=== PATIENT | male | born 1975 | race Caucasian/White ===

== ENCOUNTER → 2017-12-20 07:30 | Outpatient (CLI) | payer BC, SELFPAY ==
[2017-12-20 10:34] LABS: Hematocrit 50.1 % (40-54); Hemoglobin 17.9 g/dl (13.0-16.5); Mean Corp Hgb Conc 35.7 g/gl (32-36); Mean Corpuscular Hgb 30.5 pg (27.0-32.0); Mean Corpuscular Volume 85.3 fL (80-94); Mean Platelet Vol. 10.3 fl (6.2-12.0); Platelet Count 294 K/mm3 (150-450); RBC Distribution Width CV 13.4 % (11.6-14.6); RBC Distribution Width SD 41.6 fl (35.1-43.9); Red Blood Count 5.87 M/mm3 (4.6-6.2); White Blood Count 9.4 K/mm3 (4.4-11.0)
[2017-12-20 10:38] LABS: Scan Indicated on CBC? Y/N NO
[2017-12-20 12:03] LABS: ALB/GLOB Ratio 1.2 RATIO (0.9-2.4); AST(SGOT) 18 U/L (15-37); Alanine Aminotransfer ALT/SGPT 33 U/L (16-61); Albumin, Serum 4.1 g/dL (3.2-5.0); Alkaline Phosphatase 85 U/L (45-117); Anion Gap 7 (5-15); BUN 13 mg/dL (7-18); BUN/Creat Ratio 13.2 RATIO (10-20); Calcium,Total 8.6 mg/dL (8.5-10.1); Chloride 107 mmol/L (98-107); Creatinine, Serum 0.99 mg/dL (0.70-1.30); EST Glomerular Filtration Rate 89 mL/min (>60); Est Glom Filt Rate - Afr Amer 108 mL/min (>60); Estradiol < 11.0 pg/mL; Globulin 3.4 g/dL (2.2-4.2); Glucose 84 mg/dL (74-106); PSA,Total - Annual Screen 0.97 ng/mL (0.00-4.00); Potassium 3.9 mmol/L (3.5-5.1); Protein, Total 7.5 g/dL (6.4-8.2); Sodium Level 140 mmol/L (136-145)
[2017-12-24 20:06] LABS: DHEA Sulfate 184.4 ug/dL (102.6-416.3); Testosterone, % Free 4.47 % (1.50-4.20); Testosterone, Free 18.64 ng/dL (5.00-21.00)
[2017-12-25 09:23] LABS: Sex Hormone-binding Globulin 32.5 nmol/L (16.5-55.9); Testosterone, Total 417 ng/dL (264-916)
[2018-04-13 00:06] LABS: PSA,Total- Diagnostic 0.97 ng/mL (0.0-4.0)
== END ==
PROVIDERS: Family Provider Family Medicine; PCP Family Medicine
DX: E29.1 Testicular hypofunction (principal)
CPT/HCPCS: 36415; 80053; 82627; 82670; 84153; 84270; 84402; 84403; 85027; 82626; G0103

== ENCOUNTER → 2018-01-31 16:54 | Outpatient (CLI) | payer BC, SELFPAY | PROVIDERS: Family Provider Family Medicine; PCP Family Medicine; Visit Provider Family Medicine | DX: R07.9 Chest pain, unspecified (principal) ==

== ENCOUNTER 2018-02-01 09:50 | Emergency (ER) | payer BC, SELFPAY ==
[2018-02-01 09:50] VITALS: BP 158/106; PULSE 80; RESP 15; TEMP 35.9; O2SAT 97; BMI 27.6
--- NOTE | 2018-02-01 10:05 | EKG12_ITS ---
Test Reason : PALPS Blood Pressure : / mmHG Vent. Rate : 072 BPM Atrial Rate : 072 BPM P-R Int : 140 ms QRS Dur : 096 ms QT Int : 346 ms P-R-T Axes : 054 071 008 degrees QTc Int : 378 ms Normal sinus rhythm Nonspecific T wave abnormality Confirmed by MERISSA KING, CHLOÉ ([id number]), purchasing expeditor DARRICK DUFFY ([id number]) on 02/03/2018 2:37:34 PM Referred By: Balbina Cooper Confirmed By:CHLOÉ CRAVEN MD
--- NOTE | 2018-02-01 10:15 | ED.DCSUM_ITS ---
- ER Visit Summary Date of Service: 02/01/18 Chief Complaint: Palpitations History of Present Illness: The patient is a 42 M presenting with 2-3 days of feeling wiped out and having intermittent palpitations. He drove home from [facility] 3 days ago. He did stop for food and restroom breaks. He denies lower extremity pain or swelling. Denies history of DVT or PE. Otherwise denies immobilization. No recent surgeries. He has not had actual chest pain or shortness of breath but has felt a funny feeling in the left side of his chest with a fluttering sensation and palpitations. He saw his doctor yesterday and had an EKG performed subsequently referred to the emergency department with concern for pulmonary embolism. He has no personal history of cardiac issues. He does suffer from lupus and is on Ultram but no other medications. He started smoking 4 months ago. His only family history of cardiac disease is a myocardial infarction and subsequent two-vessel CABG performed this past August at age 65. Physical Examination: Within normal limits. Not in distress. Neck is supple. Heart tones regular without murmur. Lungs are clear bilaterally. Abdomen is soft and nontender. No tenderness along the lower extremity venous system, edema, or palpable cords. Strong pulses in all extremities. No chest wall tenderness. Test Results: CBC and BMP are both normal. Troponin is negative. EKG unremarkable. Chest x-ray clear. Emergency Department Course and Treatment: None and is negative after several days of symptoms arguing against acute coronary syndrome. No ischemic changes on EKG. No associated shortness of breath, diaphoresis, or other anginal type symptoms. He has no clinical evidence of DVT and no risk factors other than his recent drive. His pulse ox is 98% and his heart rate is 60 making pulmonary embolus and extremely unlikely. His d-dimer is negative as well so I do not feel he needs a CT angiogram. Chest x-ray is clear and other labs are unremarkable. Exact cause of his palpitations is not clear at this point but his heart rate has been in the 60s and normal sinus on the monitor throughout his entire stay. He looks well and wants to go home. I discussed the case with his primary care physician, Dr. Cooper, to arrange close follow-up. He was discharged in stable condition. Treatment Plan: Follow-up with Dr. Cooper Disposition: Home in stable condition Impression: Initial encounter palpitations of uncertain etiology This note was generated with [employer] dictation software. It may contain incorrect words, spelling, and punctuation that were not noted in review of the chart prior to signing ED Disposition - Plan for ED Patient: Chief Complaint: Palpitations Instructions: ED Palpitations Referrals: Gustavo Grace MD [Primary Care Provider] -
[2018-02-01 10:26] LABS: Absolute Lymphocyte Count 2.06 X10^3/ul (0.83-4.51); Absolute Neutrophil Count 5.5 X10^3/uL (2.0-7.7); Basophil# 0.03 X10^3/uL; Basophil% 0.4 % (0-1); Eosinophil# 0.18 X10^3/uL; Eosinophils% 2.2 % (0-5); Hematocrit 49.1 % (40-54); Hemoglobin 16.9 g/dl (13.0-16.5); Lymphocyte # 2.06 X10^3/ul (4.0); Lymphocyte % 24.7 % (19-41); Mean Corp Hgb Conc 34.4 g/gl (32-36); Mean Corpuscular Hgb 30.3 pg (27.0-32.0); Mean Platelet Vol. 9.4 fl (6.2-12.0); Monocyte# 0.59 X10^3/uL; Monocyte% 7.1 % (0-10); Neutrophil # 5.46 X10^3/uL (2.7-7.7); Neutrophil % 65.4 % (47-70); Platelet Count 311 K/mm3 (150-450); RBC Distribution Width CV 14.3 % (11.6-14.6); Red Blood Count 5.58 M/mm3 (4.6-6.2); White Blood Count 8.3 K/mm3 (4.4-11.0)
[2018-02-01] MEDS: 0.9% Normal Saline 1,000 ML 1000 ML IV (10:30)
[2018-02-01] MEDS: Aspirin 81 MG TAB.CHEW 324 MG PO (10:30)
[2018-02-01 10:31] VITALS: O2SAT 95
[2018-02-01 10:31] LABS: POSITIVE COUNT NO; POSITIVE DIFFERENTIAL NO; POSITIVE MORPHOLOGY NO
[2018-02-01 10:32] VITALS: BP 139/85; PULSE 70; RESP 18; O2SAT 95
--- NOTE | 2018-02-01 10:45 | RAD_ITS ---
STUDY: X-RAY CHEST REASON FOR EXAM: Male, 42 years old. PALPITATIONS TECHNIQUE: Frontal and lateral views of the chest. COMPARISON: None. FINDINGS: The lungs are clear and expanded. There is no demonstrated pleural abnormality. Normal size heart. Normal mediastinum and zak. Normal visualized pulmonary arteries. Normal visualized aortic arch and descending thoracic aorta. Normal visualized thoracic spine. Normal visualized ribs, clavicles, and shoulders. There is no demonstrated abnormality of the visualized soft tissue structures of the upper abdomen. RAD/Chest PA and Lateral IMPRESSION: Normal x-ray examination of the chest. Electronically Signed: Wayne Palomino MD at 11:30 EDT Tel , Service support ,
[2018-02-01] MEDS: Famotidine 20 MG Tablet 40 MG PO (10:46)
[2018-02-01 10:48] LABS: Anion Gap 5 (5-15); BUN 9 mg/dL (7-18); BUN/Creat Ratio 7.6 RATIO (10-20); Calcium,Total 9.3 mg/dL (8.5-10.1); Chloride 106 mmol/L (98-107); Creatinine, Serum 1.18 mg/dL (0.70-1.30); EST Glomerular Filtration Rate 72 mL/min (>60); Est Glom Filt Rate - Afr Amer 88 mL/min (>60); Glucose 125 mg/dL (74-106); Potassium 3.8 mmol/L (3.5-5.1); Sodium Level 140 mmol/L (136-145)
[2018-02-01 11:03] LABS: D-Dimer Quantitative (DVT/PE) 0.43 FEU/ug/m (0.27-0.49)
[2018-02-01 13:27] VITALS: BP 139/84; PULSE 91; RESP 20; O2SAT 97
--- NOTE | 2018-02-01 13:28 | ED.RN ---
THIS NURSE REVIEWED D/C INSTRUCTIONS WITH PT. PT VERBALIZED UNDERSTANDING OF INSTRUCTIONS. IV D/C. IV CATHETER INTACT. PT TOLERATED WELL. PT DENIES FURTHER NEEDS OR QUESTIONS AT THIS TIME. PT AMBULATES FROM ROOM ON OWN WITHOUT ASSISTANCE FROM STAFF
== END 2018-02-01 13:29 | disposition home or self-care (01) ==
LOC: ED 10:22
PROVIDERS: Emergency Provider Emergency Medicine; Family Provider Family Medicine; PCP Family Medicine
DX: R00.2 Palpitations (principal); R07.89 Other chest pain; R11.0 Nausea; Z79.899 Other long term (current) drug therapy; Z72.0 Tobacco use
CPT/HCPCS: 71046; 80048; 84484; 85025; 85379; 93005; 96360; 96361; 99285; J7030

== ENCOUNTER → 2018-04-06 11:46 | Outpatient (CLI) | payer SELFPAY ==
[2018-04-06 14:09] LABS: Hematocrit 47.8 % (40-54); Hemoglobin 16.1 g/dl (13.0-16.5); Mean Corp Hgb Conc 33.7 g/gl (32-36); Mean Corpuscular Hgb 30.4 pg (27.0-32.0); Mean Corpuscular Volume 90.2 fL (80-94); Mean Platelet Vol. 10.2 fl (6.2-12.0); Platelet Count 332 K/mm3 (150-450); RBC Distribution Width CV 13.5 % (11.6-14.6); RBC Distribution Width SD 44.2 fl (35.1-43.9); White Blood Count 9.6 K/mm3 (4.4-11.0)
[2018-04-06 14:11] LABS: Scan Indicated on CBC? Y/N NO
[2018-04-06 14:34] LABS: ALB/GLOB Ratio 1.1 RATIO (0.9-2.4); AST(SGOT) 20 U/L (15-37); Alanine Aminotransfer ALT/SGPT 29 U/L (16-61); Alkaline Phosphatase 74 U/L (45-117); Anion Gap 7 (5-15); BUN 10 mg/dL (7-18); BUN/Creat Ratio 7.9 RATIO (10-20); Calcium,Total 9.7 mg/dL (8.5-10.1); Chloride 104 mmol/L (98-107); Creatinine, Serum 1.27 mg/dL (0.70-1.30); EST Glomerular Filtration Rate 66 mL/min (>60); Est Glom Filt Rate - Afr Amer 80 mL/min (>60); Estradiol 32.9 pg/mL; Globulin 3.7 g/dL (2.2-4.2); Glucose 62 mg/dL (74-106); Potassium 3.9 mmol/L (3.5-5.1); Protein, Total 7.7 g/dL (6.4-8.2); Sodium Level 141 mmol/L (136-145)
[2018-04-10 16:09] LABS: Testosterone, % Free 4.58 % (1.50-4.20); Testosterone, Free 32.15 ng/dL (5.00-21.00)
[2018-04-11 10:22] LABS: Insulin Like Growth Factor 169 ng/mL (75-216); Testosterone, Total 702 ng/dL (264-916)
[2018-04-12 14:08] LABS: PSA,Total - Annual Screen 0.99 ng/mL (0.00-4.00)
== END ==
PROVIDERS: Family Provider Family Medicine; PCP Family Medicine
DX: E29.1 Testicular hypofunction (principal)
CPT/HCPCS: 36415; 80053; 82627; 82670; 84153; 84305; 84402; 84403; 85027; 82626; G0103

== ENCOUNTER → 2018-12-01 | Outpatient (CLI) | payer OTHER, SELFPAY ==
[2018-12-01 16:17] LABS: Hematocrit 45.8 % (40-54); Hemoglobin 15.6 g/dl (13.0-16.5); Mean Corp Hgb Conc 34.1 g/gl (32-36); Mean Corpuscular Hgb 29.7 pg (27.0-32.0); Mean Corpuscular Volume 87.2 fL (80-94); Mean Platelet Vol. 10.3 fl (6.2-12.0); Platelet Count 320 K/mm3 (150-450); RBC Distribution Width CV 13.2 % (11.6-14.6); RBC Distribution Width SD 42.3 fl (35.1-43.9); Red Blood Count 5.25 M/mm3 (4.6-6.2); White Blood Count 8.1 K/mm3 (4.4-11.0)
[2018-12-01 16:20] LABS: Scan Indicated on CBC? Y/N NO
[2018-12-01 16:59] LABS: ALB/GLOB Ratio 1.2 RATIO (0.9-2.4); AST(SGOT) 24 U/L (15-37); Alanine Aminotransfer ALT/SGPT 37 U/L (16-61); Alkaline Phosphatase 100 U/L (45-117); Anion Gap 6 (5-15); BUN 10 mg/dL (7-18); BUN/Creat Ratio 9.8 RATIO (10-20); Calcium,Total 8.7 mg/dL (8.5-10.1); Chloride 106 mmol/L (98-107); Creatinine, Serum 1.02 mg/dL (0.70-1.30); EST Glomerular Filtration Rate 85 mL/min (>60); Est Glom Filt Rate - Afr Amer 103 mL/min (>60); Estradiol 15.4 pg/mL; Globulin 3.3 g/dL (2.2-4.2); Glucose 86 mg/dL (74-106); PSA,Total- Diagnostic 0.74 ng/mL (0.0-4.0); Potassium 3.8 mmol/L (3.5-5.1); Protein, Total 7.3 g/dL (6.4-8.2); Sodium Level 140 mmol/L (136-145)
[2018-12-06 09:17] LABS: Testosterone, % Free 3.01 % (1.50-4.20); Testosterone, Free 9.42 ng/dL (5.00-21.00)
[2018-12-06 11:41] LABS: Insulin Like Growth Factor 125 ng/mL (75-216); Testosterone, Total 313 ng/dL (264-916)
== END | disposition home or self-care (01) ==
LOC: MTLAB 13:57
PROVIDERS: Family Provider Family Medicine; PCP Family Medicine
DX: E29.1 Testicular hypofunction (principal)
CPT/HCPCS: 36415; 80053; 82627; 82670; 84153; 84305; 84402; 84403; 85027; 82626

== ENCOUNTER 2019-09-09 14:35 | Emergency (ER) | payer OTHER, SELFPAY ==
[2019-09-09 14:36] VITALS: BP 160/88; PULSE 86; RESP 16; TEMP 36.4; O2SAT 100; BMI 27.3
--- NOTE | 2019-09-09 15:23 | RAD_ITS ---
STUDY: X-RAY - RIGHT KNEE REASON FOR EXAM: Male, 44 years old. PAIN AND SWELLING IN HIS RIGHT KNEE. RECENT SURGERY July FOR TORN MENISCUS AND ONE TO SAME KNEE A FEW YRS AGO WELL. TECHNIQUE: 4 view(s) of the knee. COMPARISON: None. FINDINGS: Normal visualized distal femur. Normal visualized proximal tibia and fibula. Normal proximal tibiofibular articulation. Normal medial femorotibial compartment. Normal lateral femorotibial compartment. Normal patellofemoral articulation. There is no demonstrated joint effusion. The soft tissue structures are unremarkable. RAD/Knee 4 or More Views IMPRESSION: No fracture or malalignment. Electronically Signed: Tigre Mendoza MD (Brooks) at 15:57 EST , Service support ,
--- NOTE | 2019-09-09 15:46 | ED.DCSUM_ITS ---
- ER Visit Summary Date of Service: 09/09/19 Chief Complaint: Right knee pain History of Present Illness: The patient is a 44 M who reports he had arthroscopy on his right knee by Dr. Rahul Tolbert from [facility] on August 09. He reports that he has had pain ever since that time. He is not going to physical therapy. He describes the pain as sharp and aching. Is 10 on 10 at worst and 7 out of 10 currently. Is worsened by walking. Is relieved minimally by Advil. He denies any numbness or weakness. He denies any calf pain or swelling. He denies any chest pain or shortness of breath. Physical Examination: Vitals: Stable. Afebrile. General: Well-nourished and well-developed. Head: Normocephalic atraumatic. Neck: Supple, no lymphadenopathy. No JVD. Nontender. Cardiovascular: Regular rate and rhythm. No murmurs. Respiratory: No respiratory distress. Clear to auscultation bilaterally. Abdominal: Soft, nontender, nondistended, normal bowel sounds. No guarding, rebound, or peritoneal signs. Back: Nontender. Extremities: Moderate joint effusion of the right knee. He is able to bend to approximately 120 degrees with mild pain. He is not able to fully extend his knee. He has moderate diffuse tenderness palpation over his entire knee. However, there is no erythema or warmth to suggest a septic joint. He has no calf tenderness. He has a 2+ dorsalis pedis pulse and is neurovascularly intact. Skin: Normal color, no rash. Neurologic: Alert and oriented ?3. Cranial nerves II through XII are intact. Normal strength and sensation. Psych: Normal affect. Test Results: Clinical Impression(s) from Imaging Studies Knee X-Ray 09/09/19 15:23 IMPRESSION: No fracture or malalignment. Electronically Signed: Tigre Mendoza MD (Brooks) at 15:57 EST , Service support , Emergency Department Course and Treatment: Patient drove here and had already taken ibuprofen prior to arrival. Treatment Plan: Patient will be discharged with prescription for 12 Percocet. He is instructed to begin using his crutches again and be nonweightbearing. Ice is much as possible. Follow-up with his orthopedic surgeon as soon as possible. Return to the emergency department for any worsening symptoms. Disposition: To home in improved and stable condition. Impression: 1. Right knee pain. 2. Status post right knee arthroscopy August 09, 2019. This note was generated with [employer] software. It may contain incorrect words, spelling, and punctuation that were not noted in review of the chart prior to signing ED Disposition - Plan for ED Patient: Disposition: Home or Assisted Living Instructions: KNEE PAIN, Uncertain Cause Prescriptions: Oxycodone HCl/Acetaminophen [Percocet 5/325] 1 tab PO Q6H PRN PRN 3 Days #12 tab PRN Reason: Pain Prescription Printed Referrals: Rahul Scott [NON-STAFF] - As soon as possible
[2019-09-09 16:34] VITALS: RESP 15
== END 2019-09-09 16:35 | disposition home or self-care (01) ==
LOC: ED 15:15
PROVIDERS: Emergency Provider Emergency Medicine; PCP Family Medicine
DX: M25.561 Pain in right knee (principal); Z98.890 Other specified postprocedural states; M32.9 Systemic lupus erythematosus, unspecified; F17.200 Nicotine dependence, unspecified, uncomplicated
CPT/HCPCS: 73564; 99282

== ENCOUNTER → 2019-10-22 13:50 | Outpatient (CLI) | payer OTHER, SELFPAY ==
[2019-10-22 16:09] LABS: ALB/GLOB Ratio 1.1 RATIO (0.9-2.4); AST(SGOT) 19 U/L (15-37); Alanine Aminotransfer ALT/SGPT 36 U/L (16-61); Albumin, Serum 3.9 g/dL (3.2-5.0); Alkaline Phosphatase 92 U/L (45-117); Anion Gap 4 (5-15); BUN 14 mg/dL (7-18); BUN/Creat Ratio 14.5 RATIO (10-20); Calcium,Total 9.1 mg/dL (8.5-10.1); Chloride 108 mmol/L (98-107); Creatinine, Serum 0.96 mg/dL (0.70-1.30); EST Glomerular Filtration Rate 91 mL/min (>60); Est Glom Filt Rate - Afr Amer 110 mL/min (>60); Estradiol 24.6 pg/mL; Globulin 3.4 g/dL (2.2-4.2); Glucose 131 mg/dL (74-106); PSA,Total - Annual Screen 0.66 ng/mL (0.00-4.00); Potassium 3.6 mmol/L (3.5-5.1); Protein, Total 7.3 g/dL (6.4-8.2); Sodium Level 140 mmol/L (136-145)
[2019-10-22 16:28] LABS: Hematocrit 45.1 % (40-54); Hemoglobin 15.4 g/dL (13.0-16.5); Mean Corp Hgb Conc 34.1 g/dL (32-36); Mean Corpuscular Hgb 30.6 pg (27.0-32.0); Mean Corpuscular Volume 89.5 fL (80-94); Mean Platelet Vol. 9.6 fl (6.2-12.0); Platelet Count 364 K/mm3 (150-450); RBC Distribution Width SD 42.6 fl (35.1-43.9); Red Blood Count 5.04 M/mm3 (4.6-6.2); White Blood Count 11.3 K/mm3 (4.4-11.0)
[2019-10-26 12:07] LABS: DHEA Sulfate 110.7 ug/dL (102.6-416.3); Insulin Like Growth Factor 120 ng/mL (75-216); Testosterone, % Free 2.51 % (1.50-4.20); Testosterone, Free 7.91 ng/dL (5.00-21.00)
[2019-10-26 23:53] LABS: Sex Hormone-binding Globulin 31.8 nmol/L (16.5-55.9); Testosterone, Total 315 ng/dL (264-916)
== END ==
PROVIDERS: PCP Family Medicine
DX: E29.1 Testicular hypofunction (principal)
CPT/HCPCS: 36415; 80053; 82627; 82670; 84153; 84270; 84305; 84402; 84403; 85027; 82626; G0103

== ENCOUNTER 2019-12-12 11:00 | Outpatient (RCR) | payer OTHER, SELFPAY ==
--- NOTE | 2019-10-05 13:01 | HP.PTEVAL_ITS ---
Patient's Visit Information RHONDA CARDENAS Gerry is a 44 year old M referred to Physical Therapy by HUBERT AGUILA with a diagnosis of Knee. Date of Evaluation: 10/05/19 Physical Therapist: Lacey Solares DPT - Visit Plan Frequency: 2x /Week Duration: 4 Weeks Plan: Focus on LE ROM and strength - Subjective Findings: August 09- Dr. Aguila- clean out of the right knee. 3 previous surgeries 1990 growth plates, MCL 1992, 1996 scoped and fixed a small tear in ACL without repair, and then this year. Performed surgery due to dislocations- the last time he in June and he had to have a congressional assistant put it back in place. Was weight bearing- fell down a few days after surgery and its been swollen and miserable since. Had a cortisone injection 2 weeks ago. Went to ER Sep 09 and they did an x-ray which was negative- went back to surgeon Sep 25 and the knee cap was again in the quad and he put it back in place. On crutches prior to seeing him. Currently knee cap is correct location and has not moved since then. Has deep bone bruises due to the dislocations. He has had an MRI again since surgery and no tears Worst in the last 48 hours 03/31 Agg: everything Eases: elevation, ice and heat. Best: 11/29. Patient reports that he has pain all over the knee- no radiating pain to the hip or ankle. Dully and achy and sharp shooting depending on what he is doing. He has poor ROM. Sleep: disturbed- normally a stomach sleeper but has been on his back. 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 Carries a 45lb backpack when he travels. Back to work. Should be able to do PT in clinic Tuesday and Fridays. PMHx: Lupus (skin and joint) Meds: Mobic, Tramadol, Percoset, Probiotic - Objective Posture: FH, RS- can correct but does not maintain. Gait: antalgic- decreased stance on right LE- poor heel/toe pattern- does not obtain full extension. SLS: unable. HR/TR: able. Palpation: significant tenderness around patella and medial and lateral joint line. ROM: 10-80 degrees. Strength: quad set is visible but poor- SLR: significant lag. Flex: HS: severe, gastroc: severe - Goals Goal 1:: Patient will be I with HEP and progression Goal Time Frame: 4-6 Weeks Goal 2:: Patient will ambulate >300 feet with a normalized gait pattern Goal Time Frame: 4-6 Weeks Goal 3:: Patient will asc/desc 8 stairs with recip pattern no HR Goal Time Frame: 4-6 Weeks - Rehabilitation Potential Physical Therapy Diagnosis: Patient presents with hypomobility- he has decreased strength, ROM, flex and muscular endurance leading to abnormal gait and decreased ability to perform ADL's Rehabilitation Potential: Fair - Anticipated Interventions Patient/Client Instruction: Educate patient on: Benefits of Fitness Program Therapeutic Exercise to Include: Strength training, Endurance training, Balance training, Agility training, Body mechanics, Postural training, Flexibilty training, Gait and locomotor training, Neuromotor development, Passive ROM, Active ROM, Scapular Strength/Stabilization For the Purpose of:: To improve muscle performance and motor function TENS: Yes Cryotherapy (ice pack, ice massage): Yes Thermo therapy (hot pack): Yes Thank you for the opportunity to evaluate your patient. For Medicare and Medicare HMO plans, please review the plan of care and approve it. It will need to be FAXED BACK to us at [phone] for Medicare purposes. For Medicare only, by signing this I certify the plan of care. Please let me know if there are questions or concerns regarding this plan of care. Physician Signature: Date:
--- NOTE | 2020-03-28 11:51 | HP.PT.NRP ---
RHONDA CARDENAS Sr. was seen in my office for initial evaluation on 10/05/19. The following Plan of Care was established for this patient: Initial Frequency: 2x /Week Initial Duration: 4 Weeks Patient/Client Instruction: Educate patient on: Benefits of Fitness Program Therapeutic Exercise to Include: Strength training, Endurance training, Balance training, Agility training, Body mechanics, Postural training, Flexibilty training, Gait and locomotor training, Neuromotor development, Passive ROM, Active ROM, Scapular Strength/Stabilization For the Purpose of:: To improve muscle performance and motor function TENS: Yes Cryotherapy (ice pack, ice massage): Yes Thermo therapy (hot pack): Yes This patient was last seen in our office . Pertinent comments regarding their Physical therapy will appear below: Pt was treated for 11 PT visits for knee pain through the date of 12/12/19. Pt has not returned through todays date and is discontinued at this time. At this point I will be discontinuing this patient from physical therapy. I would be happy to see this patient again in the future if found appropriate by the physician. Thank you! Jeremiah Lutz, PT, ATC
== END 2019-12-12 19:00 | disposition home or self-care (01) ==
LOC: PT 11:00
PROVIDERS: PCP Family Medicine
DX: M17.11 Unilateral primary osteoarthritis, right knee (principal); M94.261 Chondromalacia, right knee
CPT/HCPCS: 97014; 97016; 97110; 97162; G0283

== ENCOUNTER → 2020-05-05 13:51 | Outpatient (CLI) | payer OTHER, SELFPAY ==
[2020-05-05 15:24] LABS: Hemoglobin 15.4 g/dL (13.0-16.5); Mean Corp Hgb Conc 34.2 g/dL (32-36); Mean Corpuscular Hgb 30.1 pg (27.0-32.0); Mean Corpuscular Volume 87.9 fL (80-94); Mean Platelet Vol. 9.5 fl (6.2-12.0); Platelet Count 344 K/mm3 (150-450); RBC Distribution Width CV 13.6 % (11.6-14.6); Red Blood Count 5.12 M/mm3 (4.6-6.2); White Blood Count 9.2 K/mm3 (4.4-11.0)
[2020-05-05 16:15] LABS: ALB/GLOB Ratio 1.2 RATIO (0.9-2.4); AST(SGOT) 23 U/L (15-37); Alanine Aminotransfer ALT/SGPT 42 U/L (16-61); Albumin, Serum 3.8 g/dL (3.2-5.0); Alkaline Phosphatase 109 U/L (45-117); Anion Gap 5 (5-15); BUN 14 mg/dL (7-18); BUN/Creat Ratio 11.6 RATIO (10-20); Chloride 108 mmol/L (98-107); Creatinine, Serum 1.21 mg/dL (0.70-1.30); EST Glomerular Filtration Rate 70 mL/min (>60); Est Glom Filt Rate - Afr Amer 84 mL/min (>60); Estradiol 18.8 pg/mL; Globulin 3.3 g/dL (2.2-4.2); Glucose 96 mg/dL (74-106); PSA,Total- Diagnostic 0.77 ng/mL (0.0-4.0); Potassium 3.6 mmol/L (3.5-5.1); Protein, Total 7.1 g/dL (6.4-8.2); Sodium Level 143 mmol/L (136-145)
[2020-05-11 09:11] LABS: Insulin Like Growth Factor 110 ng/mL (84-270); Testosterone, % Free 2.28 % (1.50-4.20); Testosterone, Free 6.93 ng/dL (5.00-21.00)
[2020-05-11 14:44] LABS: Sex Hormone-binding Globulin 28.8 nmol/L (16.5-55.9); Testosterone, Total 304 ng/dL (264-916)
== END ==
PROVIDERS: PCP Family Medicine
DX: E29.1 Testicular hypofunction (principal)
CPT/HCPCS: 36415; 80053; 82627; 82670; 84153; 84270; 84305; 84402; 84403; 85027; 82626

== ENCOUNTER → 2020-09-10 15:30 | Outpatient (CLI) | payer OTHER, SELFPAY ==
[2020-09-10 16:35] LABS: Amphetamine Urine VISTA NEGATIVE (<1000 ng/mL); Barbiturate Urine VISTA NEGATIVE (< 200 ng/mL); Benzodiazepine Urine VISTA NEGATIVE (< 200 ng/mL); Cocaine Urine VISTA NEGATIVE (< 300 ng/mL); Ecstacy Urine VISTA NEGATIVE (< 500 ng/mL); Methadone Urine VISTA NEGATIVE (< 300 ng/mL); PCP Urine VISTA NEGATIVE (< 25 ng/mL); THC Urine VISTA NEGATIVE (< 50 ng/mL); Vista UDS pH Range 6
== END ==
PROVIDERS: PCP Family Medicine; Visit Provider Anesthesiology Pain Medicine
DX: F11.20 Opioid dependence, uncomplicated (principal)
CPT/HCPCS: 80307

== ENCOUNTER → 2020-10-07 16:33 | Outpatient (CLI) | payer OTHER, SELFPAY ==
[2020-10-07 17:29] LABS: Hematocrit 52.3 % (40-54); Hemoglobin 17.7 g/dL (13.0-16.5); Mean Corp Hgb Conc 33.8 g/dL (32-36); Mean Corpuscular Hgb 29.8 pg (27.0-32.0); Mean Platelet Vol. 9.9 fl (6.2-12.0); Platelet Count 353 K/mm3 (150-450); RBC Distribution Width SD 42.4 fl (35.1-43.9); Red Blood Count 5.94 M/mm3 (4.6-6.2); White Blood Count 9.9 K/mm3 (4.4-11.0)
[2020-10-07 17:43] LABS: ALB/GLOB Ratio 1.2 RATIO (0.9-2.4); AST(SGOT) 23 U/L (15-37); Alanine Aminotransfer ALT/SGPT 45 U/L (16-61); Albumin, Serum 4.1 g/dL (3.2-5.0); Alkaline Phosphatase 101 U/L (45-117); Anion Gap 6 (5-15); BUN 14 mg/dL (7-18); BUN/Creat Ratio 10.4 RATIO (10-20); Calcium,Total 9.2 mg/dL (8.5-10.1); Chloride 104 mmol/L (98-107); Creatinine, Serum 1.34 mg/dL (0.70-1.30); EST Glomerular Filtration Rate 62 mL/min (>60); Est Glom Filt Rate - Afr Amer 75 mL/min (>60); Estradiol 12.8 pg/mL; Globulin 3.5 g/dL (2.2-4.2); Glucose 105 mg/dL (74-106); Potassium 3.4 mmol/L (3.5-5.1); Protein, Total 7.6 g/dL (6.4-8.2); Sodium Level 140 mmol/L (136-145)
[2020-10-11 12:07] LABS: Insulin Like Growth Factor 100 ng/mL (84-270); Testosterone, % Free 2.32 % (1.50-4.20); Testosterone, Free 6.43 ng/dL (5.00-21.00)
[2020-10-11 12:49] LABS: Sex Hormone-binding Globulin 30.8 nmol/L (16.5-55.9); Testosterone, Total 277 ng/dL (264-916)
== END ==
PROVIDERS: PCP Family Medicine
DX: E29.1 Testicular hypofunction (principal)
CPT/HCPCS: 36415; 80053; 82627; 82670; 84270; 84305; 84402; 84403; 85027; 82626

== ENCOUNTER 2022-07-26 14:19 | Outpatient (CLI) | payer OTHER, SELFPAY ==
[2022-07-26 23:06] LABS: Amphetamine Urine VISTA NEGATIVE (<1000 ng/mL); Barbiturate Urine VISTA NEGATIVE (< 200 ng/mL); Benzodiazepine Urine VISTA NEGATIVE (< 200 ng/mL); Cocaine Urine VISTA NEGATIVE (< 300 ng/mL); Ecstacy Urine VISTA NEGATIVE (< 500 ng/mL); Methadone Urine VISTA NEGATIVE (< 300 ng/mL); PCP Urine VISTA NEGATIVE (< 25 ng/mL); THC Urine VISTA NEGATIVE (< 50 ng/mL); Vista UDS pH Range 7
== END 2022-07-26 23:59 | disposition home or self-care (01) ==
LOC: LAB 14:21
PROVIDERS: PCP Family Medicine; Referring Provider Anesthesiology Pain Medicine; Visit Provider Anesthesiology Pain Medicine
DX: F11.20 Opioid dependence, uncomplicated (principal)
CPT/HCPCS: 80307

== ENCOUNTER → 2023-10-03 | Outpatient (CLI) | payer OTHER, SELFPAY ==
[2023-10-03 12:40] LABS: Absolute Neutrophil Count 4.8 X10^3/uL (2.0-7.7); Basophil# 0.07 X10^3/uL; Basophil% 0.8 % (0-1); Eosinophils% 1.1 % (0-5); Hematocrit 52.7 % (40-54); Hemoglobin 17.5 g/dL (13.0-16.5); Lymphocyte % 35.2 % (19-41); Mean Corp Hgb Conc 33.2 g/dL (32-36); Mean Corpuscular Hgb 28.9 pg (27.0-32.0); Mean Platelet Vol. 9.8 fl (6.2-12.0); Monocyte# 0.88 X10^3/uL; Monocyte% 9.7 % (0-10); NRBC Flagged by Analyzer 0 % (0-5); Neutrophil # 4.81 X10^3/uL (2.7-7.7); Neutrophil % 52.9 % (47-70); Platelet Count 354 K/mm3 (150-450); RBC Distribution Width CV 14.5 % (11.6-14.6); RBC Distribution Width SD 45.8 fl (35.1-43.9); Red Blood Count 6.06 M/mm3 (4.6-6.2); White Blood Count 9.1 K/mm3 (4.4-11.0)
[2023-10-03 12:59] LABS: Basophil 0.07 % (0-1); Blast 0.07 % (0-0); Eosinophil 0.07 % (0-5); Erythrocyte Sedimentation Rate 5 mm/hr (0-20); Lymphocyte 0.07 % (19-41); Metamyelocyte 0.07 % (0-1); Monocyte 0.07 % (0-10); Myelocyte 0.07 % (0-0); Neutrophil-Band 0.07 % (0-5); Neutrophil-Segmented 0.07 % (47-70); Promyelocyte 0.07 % (0-0); Total Cells Counted 0.07 (MANUAL DIFF)
[2023-10-03 13:42] LABS: Anion Gap 9 (5-15); BUN 12 mg/dL (7-18); BUN/Creat Ratio 10.3 RATIO (10-20); CRP < 2.90 mg/L (0.0-3.0); Calcium,Total 9.4 mg/dL (8.5-10.1); Chloride 107 mmol/L (98-107); Cholesterol 151 mg/dL (200); Creatinine, Serum 1.17 mg/dL (0.70-1.30); EST Glomerular Filtration Rate 71 mL/min (>60); Est Glom Filt Rate - Afr Amer 86 mL/min (>60); Glucose 67 mg/dL (74-106); High Density Lipoprotein 39 mg/dL; Rheumatoid Factor < 10.0 IU/mL (<15); Sodium Level 140 mmol/L (136-145); Triglycerides 176 mg/dL; Very Low Density Lipoprotein 35 mg/dL (5-40)
[2023-10-04 13:09] LABS: ANTINUCLEAR ANTIBODIES DIRECT Negative (Negative); Anti-dsDNA Ab <1 IU/mL (0-9)
== END | disposition home or self-care (01) ==
LOC: MFPLAB 10:28
PROVIDERS: PCP Family Medicine; Visit Provider Family Medicine
DX: M19.90 Unspecified osteoarthritis, unspecified site (principal); I10 Essential (primary) hypertension
CPT/HCPCS: 36415; 80048; 80061; 85025; 85652; 86038; 86140; 86225; 86431

== ENCOUNTER → 2024-06-28 | Outpatient (CLI) | payer OTHER, SELFPAY ==
[2024-06-28 11:38] LABS: Amphetamine Urine VISTA NEGATIVE (<1000 ng/mL); Barbiturate Urine VISTA NEGATIVE (< 200 ng/mL); Benzodiazepine Urine VISTA NEGATIVE (< 200 ng/mL); Cocaine Urine VISTA NEGATIVE (< 300 ng/mL); Ecstacy Urine VISTA NEGATIVE (< 500 ng/mL); Methadone Urine VISTA NEGATIVE (< 300 ng/mL); PCP Urine VISTA NEGATIVE (< 25 ng/mL); THC Urine VISTA NEGATIVE (< 50 ng/mL); Vista UDS pH Range 7
== END | disposition home or self-care (01) ==
PROVIDERS: PCP Family Medicine; Referring Provider Anesthesiology Pain Medicine; Visit Provider Anesthesiology Pain Medicine
DX: F11.20 Opioid dependence, uncomplicated (principal)
CPT/HCPCS: 80307

== ENCOUNTER → 2025-05-29 | Outpatient (CLI) | payer OTHER, SELFPAY ==
[2025-05-29 13:07] LABS: Barbiturate Urine NEGATIVE (< 200 ng/mL); Benzodiazepine Urine NEGATIVE (< 200 ng/mL); PCP Urine NEGATIVE (< 25 ng/mL); THC Urine NEGATIVE (< 50 ng/mL)
== END | disposition home or self-care (01) ==
LOC: LAB 10:45
PROVIDERS: PCP Family Medicine; Referring Provider Anesthesiology Pain Medicine; Visit Provider Anesthesiology Pain Medicine
DX: F11.20 Opioid dependence, uncomplicated (principal)
CPT/HCPCS: 80307